=== PATIENT | female | born 1935 | race Caucasian/White ===

== ENCOUNTER 2017-04-25 20:15 | Emergency (ER) | payer MEDICARE ==
[~2017-04-25] VITALS: Ht 149.9 cm; Wt 55.7 kg
[2017-04-25] MEDS ORDERED: ONDANSETRON ODT 4 MG TAB.RAPDIS ONE (20:43)
[2017-04-25] MEDS ORDERED: IV NORMAL SALINE 1,000ML 1,000 ML ONE (21:06)
[2017-04-25] MEDS ORDERED: ONDANSETRON PF 4 MG/2 ML VIAL. IV ONE (21:15)
[2017-04-25] MEDS ORDERED: fentaNYL PF 100 MCG/2 ML VIAL IV PRN (21:15)
[2017-04-25] MEDS ORDERED: IV NORMAL SALINE 500ML 500 ML IV ONE (21:15)
[2017-04-25 21:16] LABS: BASO # 0.1 x10^3/uL (0.0-0.2); BASO % 1 % (0-3); EOS # 0.1 x10^3/uL (0.0-0.7); EOS % 1 % (0-3); HEMATOCRIT 34.5 % (36.0-47.0); HEMOGLOBIN 11.5 g/dL (12.0-15.5); LYMPH # 1.8 x10^3/uL (1.0-4.8); LYMPH % 26 % (24-48); MEAN CORPUSCULAR HEMOGLOBIN 29 pg (25-35); MEAN CORPUSCULAR HGB CONC 33 g/dL (31-37); MEAN CORPUSCULAR VOLUME 87 fL (79-100); MONO # 0.5 x10^3/uL (0.0-1.1); MONO % 8 % (0-9); NEUT # 4.6 x10^3uL (1.8-7.7); NEUT % 64 % (31-73); PLATELET COUNT 296 x10^3/uL (140-400); RED BLOOD COUNT 3.97 x10^6/uL (3.50-5.40); RED CELL DISTRIBUTION WIDTH 13.8 % (11.5-14.5); WHITE BLOOD COUNT 7.1 x10^3/uL (4.0-11.0)
[2017-04-25 21:27] LABS: ALBUMIN 3.9 g/dL (3.4-5.0); ALBUMIN/GLOBULIN RATIO 1.1 (1.0-1.7); CALCIUM 9.5 mg/dL (8.5-10.1); GFR 53.3; POTASSIUM 3.3 mmol/L (3.5-5.1); TOTAL BILIRUBIN 0.3 mg/dL (0.2-1.0); TOTAL PROTEIN 7.5 g/dL (6.4-8.2)
[2017-04-25] MEDS ORDERED: IOHEXOL 300 MG/ML 75 ML VIAL. IV ONE (21:45)
[2017-04-25] MEDS ORDERED: CONTRAST GIVEN MC PRN (21:45)
--- NOTE | 2017-04-25 22:50 | EKG ---
[address] [address] Test Date: 2017-04-25 Test Time: 20:52:16 Pat Name: MAKEDA BERNARD Department: Room: Gender: F [employer]: HENRY JACOBSEN : 1935 Requested By: LIZY FINN Order Number: [id number] Reading MD: Measurements Intervals [place] Rate: 78 P: -7 DE: 158 QRS: -17 QRSD: 82 T: 28 QT: 418 QTc: 480 Interpretive Statements SINUS RHYTHM LEFTWARD AXIS QRS(T) CONTOUR ABNORMALITY CANNOT RULE OUT ANTEROSEPTAL MYOCARDIAL DAMAGE PROLONGED QT RI6.01 Unconfirmed report No previous ECG available for comparison
--- NOTE | 2017-04-25 22:59 | ED.ADGEN ---
Past History Past Medical History: Asthma, Hypothyroid Past Surgical History: No Surgical History Alcohol Use: None Drug Use: None Adult General HPI HPI Patient is an 82-year-old woman, history of hypothyroidism on Synthroid, dementia on Aricept, and tremor, who presents to the emergency department with a complaint of one month to 6 weeks of decreased appetite, nausea, vomiting, diarrhea, weakness when getting up in the morning and some generalized malaise. Patient denies any fevers or chills, states that she was seen at another emergency department about 6 weeks ago, at that time was told that her TSH levels were "off", and subsequently had her Synthroid dosing adjusted. Patient states that she has been seen by a GI physician previously, but not for this issue. She states that she is concerned she may have celiac disease, after speaking with a friend who is a spray blender. She states that when she gets up in the morning she feels weak, especially in her lower extremities, but that the weakness has improved by the time she finishes watching the morning news. History of tremor, denies any change. Patient did ambulate without any difficulty in the emergency department. She states that she has not had any recent travel or surgery, denies abdominal pain, chest pain, shortness of breath , focal weakness, numbness, tingling, vision changes or headache. Patient she feels weak all over, and has had intermittent episodes of nausea and vomiting and loose brown stool over the past several weeks as stated, with development of more persistent nausea and several since of vomiting since 11:30 this morning. Currently patient is received [facility], and is resting comfortable. She denies any injuries, any swelling extremities, any rashes, any blood in stool or emesis, any additional medications or missed doses of medication, any drugs, alcohol, cigarettes. Review of Systems Review of Systems Constitutional: Denies fever or chills [] Eyes: Denies change in visual acuity, redness, or eye pain [] HENT: Denies nasal congestion or sore throat [] Respiratory: Denies cough or shortness of breath [] Cardiovascular: No additional information not addressed in HPI [] GI: Denies abdominal pain, nausea, vomiting, bloody stools or diarrhea [] : Denies dysuria or hematuria [] Musculoskeletal: Denies back pain or joint pain [] Integument: Denies rash or skin lesions [] Neurologic: Denies headache, focal weakness or sensory changes [] Endocrine: Denies polyuria or polydipsia [] Current Medications Current Medications Current Medications Medications (Trade) Dose Ordered Sig/Naldo Start Time Stop Time Status Last Admin Dose Admin Fentanyl Citrate (Fentanyl 2ml Vial) 25 mcg PRN Q15MIN PRN 04/25/17 21:15 04/26/17 00:53 DC Info (Do NOT chart on this entry -- for MONITORING) 1 each PRN DAILY PRN 04/25/17 21:45 04/26/17 00:53 DC Iohexol (Omnipaque 300 Mg/ml) 75 ml 1X ONCE 04/25/17 21:45 04/25/17 21:46 DC Ondansetron HCl (Zofran Odt) 4 mg STK-MED ONCE 04/25/17 20:43 04/25/17 20:44 DC Ondansetron HCl (Zofran) 4 mg 1X ONCE 04/25/17 21:15 04/25/17 21:20 DC 04/25/17 21:15 4 MG Potassium Chloride (KCl Oral Soln) 40 meq 1X ONCE 04/25/17 23:45 04/26/17 00:46 DC 04/25/17 23:45 40 MEQ Sodium Chloride 1,000 ml @ As Directed STK-MED ONCE 04/25/17 21:06 04/25/17 21:07 DC Allergies Allergies Allergies Coded Allergies Type Severity Reaction Last Updated Verified azithromycin Allergy Unknown 04/25/17 Yes codeine Allergy Unknown 04/25/17 Yes doxycycline Allergy Unknown 04/25/17 Yes erythromycin base Allergy Unknown 04/25/17 Yes Physical Exam Physical Exam Constitutional: Well developed, well nourished, no acute distress, non-toxic appearance. [] HENT: Normocephalic, atraumatic, bilateral external ears normal, oropharynx moist, no oral exudates, nose normal. [] Eyes: PERRLA, EOMI, conjunctiva normal, no discharge. [] Neck: Normal range of motion, no tenderness, supple, no stridor. [] Cardiovascular:Heart rate regular rhythm, no murmur, S1, S2, no rubs or gallops. [] Lungs & Thorax: Bilateral breath sounds clear to auscultation, no wheezing, rhonchi, rales. No chest wall crepitus or tenderness. [] Abdomen: Bowel sounds normal, soft, no tenderness, no rebound, rigidity, no guarding, no masses, no pulsatile masses. [] Skin: Warm, dry, no erythema, no rash. [] Back: No tenderness, no CVA tenderness. [] Extremities: No tenderness, no cyanosis, no clubbing, ROM intact, no edema. Negative Homans sign. [] Neurologic: Alert and oriented X 3, normal motor function, normal sensory function, no focal deficits noted. [] Psychologic: Affect normal, judgement normal, mood normal. [] Current Patient Data Vital Signs Vital Signs Date Time Temp Pulse Resp B/P (MAP) Pulse Ox O2 Delivery O2 Flow Rate FiO2 04/25/17 20:15 97.9 84 18 98 Room Air Lab Results Laboratory Tests Test 04/25/17 20:55 04/25/17 23:49 White Blood Count 7.1 x10^3/uL (4.0-11.0) Red Blood Count 3.97 x10^6/uL (3.50-5.40) Hemoglobin 11.5 g/dL (12.0-15.5) L Hematocrit 34.5 % (36.0-47.0) L Mean Corpuscular Volume 87 fL (79-100) Mean Corpuscular Hemoglobin 29 pg (25-35) Mean Corpuscular Hemoglobin Concent 33 g/dL (31-37) Red Cell Distribution Width 13.8 % (11.5-14.5) Platelet Count 296 x10^3/uL (140-400) Neutrophils (%) (Auto) 64 % (31-73) Lymphocytes (%) (Auto) 26 % (24-48) Monocytes (%) (Auto) 8 % (0-9) Eosinophils (%) (Auto) 1 % (0-3) Basophils (%) (Auto) 1 % (0-3) Neutrophils # (Auto) 4.6 x10^3uL (1.8-7.7) Lymphocytes # (Auto) 1.8 x10^3/uL (1.0-4.8) Monocytes # (Auto) 0.5 x10^3/uL (0.0-1.1) Eosinophils # (Auto) 0.1 x10^3/uL (0.0-0.7) Basophils # (Auto) 0.1 x10^3/uL (0.0-0.2) Sodium Level 138 mmol/L (136-145) Potassium Level 3.3 mmol/L (3.5-5.1) L Chloride Level 101 mmol/L (98-107) Carbon Dioxide Level 28 mmol/L (21-32) Anion Gap 9 (6-14) Blood Urea Nitrogen 12 mg/dL (7-20) Creatinine 1.0 mg/dL (0.6-1.0) Estimated GFR (Cockcroft-Gault) 53.3 BUN/Creatinine Ratio 12 (6-20) Glucose Level 98 mg/dL (70-99) Lactic Acid Level 0.9 mmol/L (0.4-2.0) Calcium Level 9.5 mg/dL (8.5-10.1) Magnesium Level 1.8 mg/dL (1.8-2.4) Total Bilirubin 0.3 mg/dL (0.2-1.0) Aspartate Amino Transferase (AST) 14 U/L (15-37) L Alanine Aminotransferase (ALT) 15 U/L (14-59) Alkaline Phosphatase 92 U/L (46-116) Troponin I Quantitative < 0.017 ng/mL (0-0.055) Total Protein 7.5 g/dL (6.4-8.2) Albumin 3.9 g/dL (3.4-5.0) Albumin/Globulin Ratio 1.1 (1.0-1.7) Lipase 140 U/L (73-393) Urine Collection Type Unknown Urine Color Yellow Urine Clarity Clear Urine pH 6.0 Urine Specific [place] 1.010 Urine Protein Neg (NEG-TRACE) Urine Glucose (UA) Neg mg/dL (NEG) Urine Ketones (Stick) Neg mg/dL (NEG) Urine Blood Trace (NEG) Urine Nitrite Neg (NEG) Urine Bilirubin Neg (NEG) Urine Urobilinogen Dipstick 0.2 mg/dL (0.2 mg/dL) Urine Leukocyte Esterase Small (NEG) Urine RBC Occ /HPF (0-2) Urine WBC Occ /HPF (0-4) Urine Squamous Epithelial Cells Occ /LPF Urine Bacteria 0 /HPF (0-FEW) EKG EKG EC: Sinus rhythm, heart rate 78 bpm, left axis deviation, QTC of 480, HI 158, QRS of 82, contour abnormalities noted in the anterior septal leads, but no ST elevations or depressions identified. Abnormal ECG, no prior for comparison. Does not meet STEMI criteria. As interpreted by me. [] Radiology/Procedures Radiology/Procedures [][address] [address] IMAGING REPORT Signed PATIENT: MAKEDA BERNARD ACCOUNT: [id number] : 1935 LOCATION: ER AGE: 82 SEX: F EXAM STATUS: REG ER ORD. PHYSICIAN: LIZY FINN DO REASON: abd pain/n/v PROCEDURE: CT ABDOMEN PELVIS WO CONTRAST CT ABDOMEN/PELVIS Indication: N/V/D, NO SURGICAL HX PER PT Technique: Multiple contiguous axial images were obtained through the abdomen and pelvis. Coronal and sagittal reformations were created. PQRS STATEMENT One or more of the following in the visualized dose reduction techniques were utilized for this study: 1. Automatic exposure control, 2. Adjustment of the mA and/or kV according to patient size, 3. Use of iterative reconstruction technique ---- Findings: The heart size is normal. The lung bases are clear. Evaluation of the abdominal viscera is limited in the absence of IV contrast. The liver and spleen are normal in size. The gallbladder is nondistended. The pancreas, and adrenal glands are within normal limits. The kidneys are unremarkable. The abdominal aorta is normal in caliber. There is no abdominopelvic ascites. The bowel loops are normal in caliber. The appendix is normal. There are scattered colonic diverticuli with no evidence for acute diverticulitis. The urinary bladder is unremarkable. The uterus demonstrates several calcified fibroids. No destructive osseus lesions are identified. Impression: No abdominopelvic ascites or inflammatory mass. Fibroid uterus. Electronically signed by: Jae Sanchez MD (04/25/2017 10:56 PM) [facility] DICTATED AND SIGNED BY: JAE SANCHEZ MD DATE: 04/25/17 4825 CC: MATT OLIVER APRN; LIZY FINN DO ~ Course & Med Decision Making Course & Med Decision Making Pertinent Labs and Imaging studies reviewed. (See chart for details) Patient has not previously received any imaging for these issues, discussion with patient and family at bedside, CT of abdomen and pelvis ordered, along with laboratory studies, antiemetics, pain medication, and IV fluids. Patient states initially that she does not have any allergies to IV contrast riding, however when patient was transported to the scanner, she stated that she believed that at some point she may been told that she should not receive IV contrast. Therefore CT was obtained without contrast. CT does not reveal any evidence of acutely concerning findings. Patient's potassium noted to be slightly low at 3.3, otherwise laboratory studies including lactic and magnesium are unremarkable. TSH is a send no laboratory study, therefore sending TSH was deferred, as patient has an appointment to follow-up with a physician tomorrow for additional evaluation. She states this is a new primary care provider in [place]. On reevaluation, patient states that she is feeling fine, has had no further nausea or vomiting in the ED. She states that she is ready to go home, patient has family at bedside, who states that after lengthy discussion, regarding potential admission to the hospital for further evaluation versus going home to follow up with her appointment tomorrow, patient would prefer to follow-up with her doctor tomorrow, and will return to the ED if any new or concerning symptoms develop. Patient ambulated without difficulty in the emergency department, voices understanding with concerning symptoms that prompt return to the ED, importance of follow-up, dietary recommendations. Patient discharged home in stable condition with her family with plan as above. Final Impression Final Impression [] Problems: Dragon Disclaimer Dragon Disclaimer This electronic medical record was generated, in whole or in part, using a voice recognition dictation system. Departure: Impression: Primary Impression: Weakness Additional Impression: Hypokalemia Disposition: HOME, SELF-CARE Condition: IMPROVED LIZY FINN DO Apr 25, 2017 22:59
[2017-04-25] MEDS ORDERED: POTASSIUM CHLORIDE 20 MEQ/15 ML ORAL LIQUID. PO ONE (23:45)
[2017-04-26 00:22] LABS: BACTERIA,URINE 0 /HPF (0-FEW); BILIRUBIN,URINE NEG (NEG); CLARITY,URINE CLEAR; COLOR,URINE YELLOW; GLUCOSE,URINE NEG (NEG); NITRITE,URINE NEG (NEG); RBC,URINE OCC /HPF (0-2); SQUAMOUS EPITHELIAL CELL,UR OCC /LPF; UROBILINOGEN,URINE 0.2 mg/dL (0.2 mg/dL); WBC,URINE OCC /HPF (0-4)
[2017-04-26 00:30] VITALS: BP 148/80
== END 2017-04-26 00:53 | disposition home or self-care (01) ==
LOC: ER 20:15
DX: E87.6 Hypokalemia (principal); R53.1 Weakness; E03.9 Hypothyroidism, unspecified; J45.909 Unspecified asthma, uncomplicated; F03.90 Unspecified dementia, unspecified severity, without behavioral disturbance, psychotic disturbance, mood disturbance, and anxiety; Z79.899 Other long term (current) drug therapy; Z88.6 Allergy status to analgesic agent; Z88.1 Allergy status to other antibiotic agents
CPT/HCPCS: 36415; 74176; 80053; 81001; 83605; 83690; 83735; 84484; 85027; 87086; 93005; 96361; 96374; 99285; J2405; J7040